=== PATIENT | female | born 1945 | race African-American/Black ===

== ENCOUNTER 2017-08-15 09:33 | Inpatient (IN) | payer MEDICARE ==
[~2017-08-15 09:33] MED LIST: EPHEDrine SULFATE 50 MG/5 ML SYG
[2017-08-15] MEDS ORDERED: ROCURONIUM 50 MG INJ (10:20)
[2017-08-15] MEDS ORDERED: PROPOFOL 20 ML (10:20)
[2017-08-15] MEDS ORDERED: MIDAZOLAM 1 MG/ML 2 ML INJ (10:21)
[2017-08-15] MEDS ORDERED: PHENYLephrine 10 MG INJ (11:11)
[2017-08-15] MEDS ORDERED: PHENYLephrine (100 MCG/ML) 5ML SYG (11:11)
[2017-08-15] MEDS ORDERED: LIDOCAINE 1%/EPI 30 ML INJ (11:13)
[2017-08-15] MEDS ORDERED: ONDANSETRON 4 MG INJ (11:15)
[2017-08-15] MEDS ORDERED: DEXAMETHASONE 4 MG/ML 1 ML INJ (11:15)
[2017-08-15] MEDS ORDERED: METOCLOPRAMIDE 10 MG INJ (11:15)
[2017-08-15] MEDS ORDERED: SUGAMMADEX SODIUM 200 MG/2 ML VIAL IV (12:24)
[2017-08-15] MEDS ORDERED: ACETAMINOPHEN 1000MG/100ML IV 100 ML (12:25)
[2017-08-15] MEDS ORDERED: OXYCODONE/ACETAMINOPHEN (5/325) TAB PO ×2 (12:30)
[2017-08-15] MEDS ORDERED: METOCLOPRAMIDE 10 MG INJ IV (12:30)
[2017-08-15] MEDS ORDERED: ALBUMIN HUMAN 5% 250 ML IV (12:30)
[2017-08-15] MEDS ORDERED: FENTAnyl 50 MCG/ML VIAL IV ×3 (12:30)
[2017-08-15] MEDS ORDERED: LABETALOL HCL 20MG INJ IV (12:30)
[2017-08-15] MEDS ORDERED: EPHEDrine SULFATE 50 MG/5 ML SYG IV (12:30)
[2017-08-15] MEDS ORDERED: hydrALAzine 20 MG INJ IV (12:30)
[2017-08-15] MEDS ORDERED: MEPERIDINE 25 MG INJ IV (12:30)
[2017-08-15] MEDS ORDERED: HYDROmorphONE (0.2 MG/ML) 10ML SYG IV ×3 (12:30)
[2017-08-15] MEDS: LIDOCAINE 1%/EPI 30 ML INJ (12:39)
[2017-08-15] MEDS ORDERED: hydrOXYzine HCL 25 MG TAB PO (13:00)
[2017-08-15] MEDS ORDERED: ONDANSETRON 4 MG INJ IV (13:00)
[2017-08-15] MEDS ORDERED: HYDROmorphONE 0.5 MG/0.5 ML SYG IV (13:00)
[2017-08-15] MEDS: DIPHENHYDRAMINE 50 MG INJ IV (13:24)
[2017-08-15] MEDS: ONDANSETRON 4 MG INJ IV (13:24)
[2017-08-15] MEDS: LACTATED RINGER'S 1,000 ML IV (15:11)
[2017-08-15] MEDS: CLINDAMYCIN 600 MG/D5W (PMX) 50 ML IVPB (17:32)
[2017-08-15 19:16] LABS: CALCIUM 10.2 mg/dl (8.4-10.2)
[2017-08-15] MEDS: ALLOPURINOL 100 MG TAB PO (20:41)
[2017-08-15] MEDS: ATORVASTATIN 80 MG TAB PO (20:41)
[2017-08-15] MEDS: AMLODIPINE 10 MG TAB PO (20:42)
[2017-08-15] MEDS: LOSARTAN 50 MG TAB PO (20:42)
[2017-08-15] MEDS: METOPROLOL (XL) 50 MG TAB PO (20:43)
[2017-08-15] MEDS: LUBIPROSTONE 24 MCG CAP PO (20:56)
[2017-08-15] MEDS: MONTELUKAST 10 MG TAB PO (20:56)
[2017-08-16] MEDS: CLINDAMYCIN 600 MG/D5W (PMX) 50 ML IVPB ×3 (00:16→14:20)
[2017-08-16] MEDS: LACTATED RINGER'S 1,000 ML IV ×3 (00:30→20:30)
[2017-08-16 01:19] LABS: CALCIUM 10.1 mg/dl (8.4-10.2)
[2017-08-16] MEDS: HYDROCODONE/APAP (5/325) TAB PO ×3 (05:40→20:43)
[2017-08-16 06:13] LABS: CALCIUM 10.6 mg/dl (8.4-10.2)
[2017-08-16 06:40] LABS: ANION GAP 14 (8-16); BLOOD UREA NITROGEN 23 mg/dl (7-20); CALCIUM 10.3 mg/dl (8.4-10.2); CARBON DIOXIDE 28 mmol/L (21-31); CHLORIDE 104 mmol/L (97-110); CREATININE 1.37 mg/dl (0.44-1.00); GLUCOSE 135 mg/dl (70-220); POTASSIUM 3.2 mmol/L (3.5-5.1); SODIUM 143 mmol/L (135-144)
[2017-08-16] MEDS: METHIMAZOLE 5 MG TAB PO (09:00)
[2017-08-16] MEDS: LUBIPROSTONE 24 MCG CAP PO (09:00)
[2017-08-16] MEDS: FLUTICASONE 0.05% 16 GM NAS SPRAY NASAL (10:08)
[2017-08-16 12:39] LABS: CALCIUM 10.3 mg/dl (8.4-10.2)
[2017-08-16] MEDS: GUAIFENESIN LA 600 MG TABSR PO (18:31)
[2017-08-16] MEDS: LOSARTAN 50 MG TAB PO (20:33)
[2017-08-16] MEDS: METOPROLOL (XL) 50 MG TAB PO (20:33)
[2017-08-16] MEDS: AMLODIPINE 10 MG TAB PO (20:33)
[2017-08-16] MEDS: LEVOTHYROXINE 100 MCG TAB PO (20:33)
[2017-08-16] MEDS: ATORVASTATIN 80 MG TAB PO (20:34)
[2017-08-16] MEDS: ALLOPURINOL 100 MG TAB PO (20:34)
[2017-08-16] MEDS: MONTELUKAST 10 MG TAB PO (21:00)
[2017-08-16] MEDS: LUBIPROSTONE 8 MCG CAPSULE PO (21:47)
[2017-08-17] MEDS: LACTATED RINGER'S 1,000 ML IV (06:30)
[2017-08-17] MEDS: LUBIPROSTONE 8 MCG CAPSULE PO (08:52)
[2017-08-17] MEDS: GUAIFENESIN LA 600 MG TABSR PO (08:52)
[2017-08-17] MEDS: METHIMAZOLE 5 MG TAB PO (09:00)
== END 2017-08-17 11:25 | disposition home or self-care (01) | DRG 627 ==
LOC: REC 09:33 → MS1 14:28
PROVIDERS: Internal Medicine
PROC: 0GTK0ZZ Resection of Thyroid Gland, Open Approach (ICD-10-PCS; principal; 2017-08-15 10:51)
DX: D35.1 Benign neoplasm of parathyroid gland (principal); E04.9 Nontoxic goiter, unspecified; E21.3 Hyperparathyroidism, unspecified
CPT/HCPCS: 80048; 82310; 88307; 88331

== ENCOUNTER 2017-08-27 19:17 | Emergency (ER) | payer MEDICARE ==
[2017-08-27 23:12] LABS: ADD MAN DIFF? NO
[2017-08-27 23:13] LABS: BASOPHILS % 0.2 % (0.0-2.0); EOSINOPHILS # 0.1 10^3/ul (0.0-0.5); HEMATOCRIT 44.4 % (37.0-47.0); HEMOGLOBIN 15.3 g/dl (12.0-16.0); LYMPHOCYTES # 4.5 10^3/ul (0.8-2.9); LYMPHOCYTES % 35.2 % (15.0-51.0); MEAN CORPUSCULAR HEMOGLOBIN 28.3 pg (29.0-33.0); MEAN CORPUSCULAR HGB CONC 34.5 g/dl (32.0-37.0); MEAN CORPUSCULAR VOLUME 82.1 fl (82.0-101.0); MEAN PLATELET VOLUME 10.5 fl (7.4-10.4); MONOCYTE # 0.7 10^3/ul (0.3-0.9); MONOCYTES % 5.7 % (0.0-11.0); NEUTROPHIL # 7.2 10^3/ul (1.6-7.5); NEUTROPHILS % 56.6 % (39.0-77.0); PLATELET COUNT 216 10^3/UL (140-415); RED BLOOD COUNT 5.41 10^6/ul (4.20-5.40); RED CELL DISTRIBUTION WIDTH 12.9 % (11.5-14.5)
[2017-08-27 23:13] LABS: WHITE BLOOD COUNT 12.7 10^3/ul (4.8-10.8)
[2017-08-27] MEDS: DEXAMETHASONE 10 MG/ML 1 ML INJ IV (23:16)
[2017-08-27 23:33] LABS: INR 1.01; PROTIME 13.4 Sec (11.9-14.9)
[2017-08-27 23:34] LABS: ALANINE AMINOTRANSFERASE 112 IU/L (13-69); ALBUMIN 4.2 g/dl (3.3-4.9); ALBUMIN/GLOBULIN RATIO 1.31; ALKALINE PHOSPHATASE 133 IU/L (42-121); ANION GAP 14 (8-16); ASPARTATE AMINO TRANSFERASE 70 IU/L (15-46); BILIRUBIN,INDIRECT 0.6 mg/dl (0-1.1); BILIRUBIN,TOTAL 0.6 mg/dl (0.2-1.3); BLOOD UREA NITROGEN 24 mg/dl (7-20); CALCIUM 7.4 mg/dl (8.4-10.2); CARBON DIOXIDE 31 mmol/L (21-31); CHLORIDE 97 mmol/L (97-110); CREATININE 1.52 mg/dl (0.44-1.00); GLUCOSE 123 mg/dl (70-220); PARTIAL THROMBOPLASTIN TIME 26.1 Sec (25.0-35.0); SODIUM 139 mmol/L (135-144); TOTAL PROTEIN 7.4 g/dl (6.1-8.1)
[2017-08-27 23:42] LABS: POTASSIUM 2.9 mmol/L (3.5-5.1)
[2017-08-27 23:45] LABS: B-TYPE NATRIURETIC PEPTIDE 38 PG/ML (0-125); TROPONIN-I 0.015 ng/ml (0.00-0.12)
[2017-08-28] MEDS: SOD CHLORIDE 0.9% 100 ML (00:22)
[2017-08-28] MEDS: IOHEXOL 300MG/ML 150 ML BTL (00:22)
[2017-08-28] MEDS: POTASSIUM CHLORIDE (SR) 20 MEQ TAB PO (01:02)
== END 2017-08-28 02:00 | disposition home or self-care (01) ==
LOC: E/R 08-28 02:00
DX: G89.18 Other acute postprocedural pain (principal); R06.02 Shortness of breath
CPT/HCPCS: 36415; 70491; 71045; 80053; 83880; 84484; 85025; 85610; 85730; 93005; 96374; 99285-25

== ENCOUNTER 2017-11-24 19:06 | Inpatient (IN) | payer MEDICARE, OTHER ==
[2017-11-24 19:53] LABS: ADD MAN DIFF? NO
[2017-11-24 19:56] LABS: WHITE BLOOD COUNT 8.4 10^3/ul (4.8-10.8)
[2017-11-24 19:56] LABS: BASOPHILS % 0.5 % (0.0-2.0); EOSINOPHILS % 0.2 % (0.0-7.0); HEMATOCRIT 39.9 % (37.0-47.0); HEMOGLOBIN 13.4 g/dl (12.0-16.0); LYMPHOCYTES # 2.1 10^3/ul (0.8-2.9); MEAN CORPUSCULAR HEMOGLOBIN 27.2 pg (29.0-33.0); MEAN CORPUSCULAR HGB CONC 33.6 g/dl (32.0-37.0); MEAN CORPUSCULAR VOLUME 80.9 fl (82.0-101.0); MEAN PLATELET VOLUME 10.8 fl (7.4-10.4); MONOCYTE # 0.4 10^3/ul (0.3-0.9); MONOCYTES % 4.3 % (0.0-11.0); NEUTROPHIL # 5.8 10^3/ul (1.6-7.5); NEUTROPHILS % 69.8 % (39.0-77.0); PLATELET COUNT 248 10^3/UL (140-415); RED BLOOD COUNT 4.93 10^6/ul (4.20-5.40); RED CELL DISTRIBUTION WIDTH 13.2 % (11.5-14.5)
[2017-11-24] MEDS: HYDROmorphONE 1 MG/5 ML IV SYRINGE IV (19:57)
[2017-11-24] MEDS: ONDANSETRON 4 MG INJ IV (19:57)
[2017-11-24] MEDS: SOD CHLORIDE 0.9% 500 ML IV (19:57)
[2017-11-24 20:14] LABS: ALANINE AMINOTRANSFERASE 19 IU/L (13-69); ALBUMIN 4.5 g/dl (3.3-4.9); ALBUMIN/GLOBULIN RATIO 1.09; ALKALINE PHOSPHATASE 112 IU/L (42-121); ANION GAP 20 (8-16); ASPARTATE AMINO TRANSFERASE 34 IU/L (15-46); BILIRUBIN,INDIRECT 0.4 mg/dl (0-1.1); BILIRUBIN,TOTAL 0.4 mg/dl (0.2-1.3); BLOOD UREA NITROGEN 18 mg/dl (7-20); CALCIUM 9.2 mg/dl (8.4-10.2); CARBON DIOXIDE 25 mmol/L (21-31); CHLORIDE 105 mmol/L (97-110); GLUCOSE 150 mg/dl (70-220); LIPASE 97 U/L (23-300); SODIUM 147 mmol/L (135-144); TOTAL PROTEIN 8.6 g/dl (6.1-8.1)
[2017-11-24 20:17] LABS: POTASSIUM 2.7 mmol/L (3.5-5.1)
[2017-11-24] MEDS: POTASSIUM CHLORIDE 100 ML IVPB ×2 (22:11→22:49)
[2017-11-24] MEDS: MAGNESIUM SULFATE 2 GM/50 ML 50 ML IVPB (22:13)
[2017-11-24] MEDS: ACETAMINOPHEN 325 MG TAB PO (22:51)
[2017-11-25] MEDS: POTASSIUM CHLORIDE 100 ML IVPB ×3 (00:30→13:10)
[2017-11-25 05:51] LABS: ADD MAN DIFF? NO
[2017-11-25 06:04] LABS: BASOPHILS % 0.6 % (0.0-2.0); EOSINOPHILS # 0.1 10^3/ul (0.0-0.5); EOSINOPHILS % 1.3 % (0.0-7.0); HEMATOCRIT 35.8 % (37.0-47.0); HEMOGLOBIN 11.9 g/dl (12.0-16.0); LYMPHOCYTES # 2.8 10^3/ul (0.8-2.9); MEAN CORPUSCULAR HEMOGLOBIN 27.2 pg (29.0-33.0); MEAN CORPUSCULAR HGB CONC 33.2 g/dl (32.0-37.0); MEAN CORPUSCULAR VOLUME 81.7 fl (82.0-101.0); MEAN PLATELET VOLUME 10.5 fl (7.4-10.4); MONOCYTE # 0.5 10^3/ul (0.3-0.9); MONOCYTES % 6.7 % (0.0-11.0); NEUTROPHIL # 3.3 10^3/ul (1.6-7.5); NEUTROPHILS % 49.1 % (39.0-77.0); PLATELET COUNT 204 10^3/UL (140-415); RED BLOOD COUNT 4.38 10^6/ul (4.20-5.40); RED CELL DISTRIBUTION WIDTH 13.2 % (11.5-14.5)
[2017-11-25 06:04] LABS: WHITE BLOOD COUNT 6.7 10^3/ul (4.8-10.8)
[2017-11-25 06:24] LABS: ALANINE AMINOTRANSFERASE 19 IU/L (13-69); ALBUMIN 3.7 g/dl (3.3-4.9); ALBUMIN/GLOBULIN RATIO 1.02; ALKALINE PHOSPHATASE 88 IU/L (42-121); ANION GAP 16 (8-16); ASPARTATE AMINO TRANSFERASE 25 IU/L (15-46); BILIRUBIN,INDIRECT 0.5 mg/dl (0-1.1); BILIRUBIN,TOTAL 0.5 mg/dl (0.2-1.3); BLOOD UREA NITROGEN 20 mg/dl (7-20); CALCIUM 8.5 mg/dl (8.4-10.2); CARBON DIOXIDE 28 mmol/L (21-31); CHLORIDE 106 mmol/L (97-110); CREATININE 1.11 mg/dl (0.44-1.00); GLUCOSE 99 mg/dl (70-220); SODIUM 147 mmol/L (135-144); TOTAL PROTEIN 7.3 g/dl (6.1-8.1)
[2017-11-25 06:29] LABS: POTASSIUM 2.9 mmol/L (3.5-5.1)
[2017-11-25] MEDS: ONDANSETRON 4 MG INJ IV (07:39)
[2017-11-25] MEDS ORDERED: morphine 4 MG/ML VIAL IV (08:05)
[2017-11-25] MEDS: HYDROmorphONE 0.5 MG/0.5 ML SYG IV ×2 (08:58)
[2017-11-25 10:32] LABS: POTASSIUM 3.1 mmol/L (3.5-5.1)
[2017-11-25] MEDS ORDERED: ONDANSETRON 4 MG INJ IV (18:00)
[2017-11-25] MEDS ORDERED: HYDROmorphONE 1 MG/5 ML IV SYRINGE IV (18:00)
[2017-11-25] MEDS: PANTOPRAZOLE 40 MG INJ IV (18:26)
[2017-11-25] MEDS: DIATR MEGLU/DIATRIZOATE SODIUM 120 ML BTL (20:00)
[2017-11-25] MEDS: METOCLOPRAMIDE 10 MG INJ IV (20:45)
[2017-11-25] MEDS: AMLODIPINE 10 MG TAB PO (20:53)
[2017-11-25] MEDS: D5W-0.45 NACL + KCL 40 MEQ 1,000 ML IV (22:04)
[2017-11-25] MEDS: METOPROLOL 50 MG TAB PO (23:00)
[2017-11-26] MEDS: D5W-0.45 NACL + KCL 40 MEQ 1,000 ML IV ×2 (04:00→09:05)
[2017-11-26] MEDS: METOPROLOL 50 MG TAB PO ×2 (04:03→09:12)
[2017-11-26] MEDS: HYDROmorphONE 0.5 MG/0.5 ML SYG IV (04:05)
[2017-11-26] MEDS: DILTIAZEM 25 MG INJ IV (05:27)
[2017-11-26] MEDS: PANTOPRAZOLE 40 MG INJ IV ×2 (05:27→17:19)
[2017-11-26] MEDS: LEVOTHYROXINE 175 MCG TAB PO (05:28)
[2017-11-26] MEDS: DILTIAZEM-D5W 125MG/125ML DRIP 125 ML IV (05:31)
[2017-11-26] MEDS ORDERED: LEVOTHYROXINE 100 MCG TAB PO (07:00)
[2017-11-26 08:45] LABS: ADD MAN DIFF? NO
[2017-11-26 08:50] LABS: WHITE BLOOD COUNT 6.3 10^3/ul (4.8-10.8)
[2017-11-26 08:50] LABS: BASOPHILS % 0.6 % (0.0-2.0); EOSINOPHILS # 0.2 10^3/ul (0.0-0.5); EOSINOPHILS % 2.4 % (0.0-7.0); HEMATOCRIT 35.8 % (37.0-47.0); HEMOGLOBIN 11.7 g/dl (12.0-16.0); LYMPHOCYTES # 3.2 10^3/ul (0.8-2.9); MEAN CORPUSCULAR HEMOGLOBIN 27.3 pg (29.0-33.0); MEAN CORPUSCULAR HGB CONC 32.7 g/dl (32.0-37.0); MEAN CORPUSCULAR VOLUME 83.4 fl (82.0-101.0); MEAN PLATELET VOLUME 10.7 fl (7.4-10.4); MONOCYTE # 0.4 10^3/ul (0.3-0.9); NEUTROPHIL # 2.4 10^3/ul (1.6-7.5); NEUTROPHILS % 38.8 % (39.0-77.0); PLATELET COUNT 210 10^3/UL (140-415); RED BLOOD COUNT 4.29 10^6/ul (4.20-5.40); RED CELL DISTRIBUTION WIDTH 13.9 % (11.5-14.5)
[2017-11-26] MEDS: CALCITRIOL 0.25 MCG CAP PO (09:11)
[2017-11-26] MEDS: LIOTHYRONINE 5 MCG TAB PO (09:11)
[2017-11-26] MEDS: METOCLOPRAMIDE 10 MG INJ IV ×3 (09:12→20:37)
[2017-11-26 09:21] LABS: ALANINE AMINOTRANSFERASE 24 IU/L (13-69); ALBUMIN 3.7 g/dl (3.3-4.9); ALBUMIN/GLOBULIN RATIO 1.15; ALKALINE PHOSPHATASE 77 IU/L (42-121); ANION GAP 13 (8-16); ASPARTATE AMINO TRANSFERASE 30 IU/L (15-46); BILIRUBIN,INDIRECT 0.7 mg/dl (0-1.1); BILIRUBIN,TOTAL 0.7 mg/dl (0.2-1.3); BLOOD UREA NITROGEN 18 mg/dl (7-20); CALCIUM 8.1 mg/dl (8.4-10.2); CARBON DIOXIDE 27 mmol/L (21-31); CHLORIDE 110 mmol/L (97-110); CREATININE 1.26 mg/dl (0.44-1.00); GLUCOSE 125 mg/dl (70-220); MAGNESIUM 1.8 mg/dl (1.7-2.5); POTASSIUM 3.6 mmol/L (3.5-5.1); SODIUM 146 mmol/L (135-144); TOTAL PROTEIN 6.9 g/dl (6.1-8.1)
[2017-11-26 09:32] LABS: T4 (THYROXINE) 14.6 ug/dl (5.5-11.0)
[2017-11-26 09:33] LABS: FREE T4 (FREE THYROXINE) 2.48 ng/dl (0.78-2.44)
[2017-11-26 09:46] LABS: THYROID STIMULATING HORMONE 0.019 MIU/L (0.465-4.680)
[2017-11-26 09:46] LABS: TRIIODOTHYRONINE 0.87 ng/ml (0.97-1.69)
[2017-11-26] MEDS: AMLODIPINE 10 MG TAB PO (20:37)
[2017-11-26] MEDS: ENALAPRILAT 1.25 MG INJ IV (21:41)
[2017-11-27] MEDS: D5W-0.45 NACL + KCL 40 MEQ 1,000 ML IV ×2 (02:23→13:27)
[2017-11-27] MEDS: LEVOTHYROXINE 150 MCG TAB PO (05:38)
[2017-11-27] MEDS: PANTOPRAZOLE 40 MG INJ IV ×2 (05:38→17:38)
[2017-11-27] MEDS: FLUTICASONE 0.05% 16 GM NAS SPRAY NASAL ×2 (08:56→21:15)
[2017-11-27] MEDS: METOCLOPRAMIDE 10 MG INJ IV ×3 (08:56→21:16)
[2017-11-27] MEDS: CALCITRIOL 0.25 MCG CAP PO (08:57)
[2017-11-27] MEDS: DILTIAZEM (CD) 120 MG CAP PO (08:58)
[2017-11-27 15:04] LABS: ALBUMIN 3.8 g/dl (3.3-4.9); ANION GAP 15 (8-16); BLOOD UREA NITROGEN 10 mg/dl (7-20); CALCIUM 7.8 mg/dl (8.4-10.2); CARBON DIOXIDE 24 mmol/L (21-31); CHLORIDE 109 mmol/L (97-110); CREATININE 0.92 mg/dl (0.44-1.00); GLUCOSE 141 mg/dl (70-220); PHOSPHORUS 2.8 mg/dl (2.5-4.9); POTASSIUM 3.4 mmol/L (3.5-5.1); SODIUM 145 mmol/L (135-144)
[2017-11-27 15:20] LABS: POTASSIUM,URINE RANDOM 16.8 mmol/L (25-125)
[2017-11-27] MEDS: SPIRONOLACTONE 25 MG TAB PO (18:26)
[2017-11-27] MEDS: AMLODIPINE 10 MG TAB PO (21:16)
[2017-11-28] MEDS: D5W-0.45 NACL + KCL 40 MEQ 1,000 ML IV ×4 (01:21→17:23)
[2017-11-28] MEDS: PANTOPRAZOLE 40 MG INJ IV ×2 (05:46→17:23)
[2017-11-28] MEDS: LEVOTHYROXINE 150 MCG TAB PO (05:46)
[2017-11-28] MEDS: SPIRONOLACTONE 25 MG TAB PO ×2 (05:46→17:23)
[2017-11-28 07:38] LABS: ALDOSTERONE 30 ng/dL
[2017-11-28] MEDS: CALCITRIOL 0.25 MCG CAP PO (08:25)
[2017-11-28] MEDS: DILTIAZEM (CD) 120 MG CAP PO (08:25)
[2017-11-28] MEDS: FLUTICASONE 0.05% 16 GM NAS SPRAY NASAL ×2 (08:43→20:28)
[2017-11-28] MEDS: METOCLOPRAMIDE 10 MG INJ IV ×3 (08:44→20:26)
[2017-11-28 10:09] LABS: ALBUMIN 3.9 g/dl (3.3-4.9); ANION GAP 16 (8-16); BLOOD UREA NITROGEN 7 mg/dl (7-20); CALCIUM 7.7 mg/dl (8.4-10.2); CARBON DIOXIDE 24 mmol/L (21-31); CHLORIDE 110 mmol/L (97-110); CREATININE 0.89 mg/dl (0.44-1.00); GLUCOSE 105 mg/dl (70-220); PHOSPHORUS 2.8 mg/dl (2.5-4.9); POTASSIUM 3.5 mmol/L (3.5-5.1); SODIUM 146 mmol/L (135-144)
[2017-11-28 10:30] LABS: MAGNESIUM 1.3 mg/dl (1.7-2.5)
[2017-11-28] MEDS ORDERED: MIDAZOLAM 1 MG/ML 2 ML INJ (14:00)
[2017-11-28] MEDS ORDERED: PROPOFOL 20 ML (14:12)
[2017-11-28] MEDS ORDERED: ESMOLOL 10 ML (14:12)
[2017-11-28] MEDS ORDERED: MEPERIDINE 25 MG INJ IV (15:00)
[2017-11-28] MEDS ORDERED: ONDANSETRON 4 MG INJ IV (15:00)
[2017-11-28] MEDS ORDERED: OXYCODONE/ACETAMINOPHEN (5/325) 1 TAB PO (15:00)
[2017-11-28] MEDS ORDERED: LABETALOL 5 MG IV (15:00)
[2017-11-28] MEDS: AMLODIPINE 10 MG TAB PO (20:26)
[2017-11-28] MEDS: MAGNESIUM SULFATE 4 GM/100 ML 100 ML IVPB (20:26)
[2017-11-29] MEDS: PANTOPRAZOLE (EC) 40 MG TAB PO (05:38)
[2017-11-29] MEDS: SPIRONOLACTONE 25 MG TAB PO ×2 (05:39→17:09)
[2017-11-29] MEDS: LEVOTHYROXINE 150 MCG TAB PO (05:42)
[2017-11-29] MEDS: FLUTICASONE 0.05% 16 GM NAS SPRAY NASAL (08:20)
[2017-11-29] MEDS: CALCITRIOL 0.25 MCG CAP PO (08:21)
[2017-11-29] MEDS: DILTIAZEM (CD) 120 MG CAP PO (08:21)
[2017-11-29 09:29] LABS: ADD MAN DIFF? NO
[2017-11-29 09:33] LABS: BASOPHIL # 0.1 10^3/ul (0.0-0.1); BASOPHILS % 0.6 % (0.0-2.0); EOSINOPHILS # 0.1 10^3/ul (0.0-0.5); EOSINOPHILS % 1.2 % (0.0-7.0); HEMATOCRIT 37.6 % (37.0-47.0); HEMOGLOBIN 12.9 g/dl (12.0-16.0); LYMPHOCYTES # 2.9 10^3/ul (0.8-2.9); LYMPHOCYTES % 36.7 % (15.0-51.0); MEAN CORPUSCULAR HEMOGLOBIN 27.6 pg (29.0-33.0); MEAN CORPUSCULAR HGB CONC 34.3 g/dl (32.0-37.0); MEAN CORPUSCULAR VOLUME 80.5 fl (82.0-101.0); MEAN PLATELET VOLUME 10.4 fl (7.4-10.4); MONOCYTE # 0.4 10^3/ul (0.3-0.9); MONOCYTES % 4.9 % (0.0-11.0); NEUTROPHIL # 4.4 10^3/ul (1.6-7.5); NEUTROPHILS % 56.1 % (39.0-77.0); PLATELET COUNT 245 10^3/UL (140-415); RED BLOOD COUNT 4.67 10^6/ul (4.20-5.40); RED CELL DISTRIBUTION WIDTH 13.4 % (11.5-14.5)
[2017-11-29 09:33] LABS: WHITE BLOOD COUNT 7.8 10^3/ul (4.8-10.8)
[2017-11-29 09:54] LABS: ALANINE AMINOTRANSFERASE 19 IU/L (13-69); ALBUMIN 4.3 g/dl (3.3-4.9); ALKALINE PHOSPHATASE 107 IU/L (42-121); ANION GAP 17 (8-16); ASPARTATE AMINO TRANSFERASE 32 IU/L (15-46); BLOOD UREA NITROGEN 6 mg/dl (7-20); CALCIUM 7.8 mg/dl (8.4-10.2); CARBON DIOXIDE 23 mmol/L (21-31); CHLORIDE 107 mmol/L (97-110); CREATININE 0.85 mg/dl (0.44-1.00); GLUCOSE 97 mg/dl (70-220); POTASSIUM 3.2 mmol/L (3.5-5.1); SODIUM 144 mmol/L (135-144); TOTAL PROTEIN 8.2 g/dl (6.1-8.1)
[2017-11-29 10:20] LABS: THYROID STIMULATING HORMONE 0.063 MIU/L (0.465-4.680)
[2017-11-29] MEDS: POTASSIUM CHLORIDE (SR) 20 MEQ TAB PO (15:08)
== END 2017-11-29 17:38 | disposition home health service (06) | DRG 389 ==
LOC: E/R 19:06 → MS4 22:30
PROC: 0DB98ZX Excision of Duodenum, Via Natural or Artificial Opening Endoscopic, Diagnostic (ICD-10-PCS; principal; 2017-11-28 13:30)
PROC: 0DB68ZX Excision of Stomach, Via Natural or Artificial Opening Endoscopic, Diagnostic (ICD-10-PCS; 2017-11-28 13:30)
DX: K56.600 Partial intestinal obstruction, unspecified as to cause (principal); N17.9 Acute kidney failure, unspecified; E87.1 Hypo-osmolality and hyponatremia; I71.4 Abdominal aortic aneurysm, without rupture; I48.0 Paroxysmal atrial fibrillation; E66.01 Morbid (severe) obesity due to excess calories; Z68.38 Body mass index [BMI] 38.0-38.9, adult; E87.6 Hypokalemia; E89.2 Postprocedural hypoparathyroidism; K29.70 Gastritis, unspecified, without bleeding; E83.42 Hypomagnesemia; E89.0 Postprocedural hypothyroidism; I10 Essential (primary) hypertension; K44.9 Diaphragmatic hernia without obstruction or gangrene
CPT/HCPCS: 36415; 74176; 74250; 80053; 80069; 82088; 82962; 83690; 83735; 84132; 84133; 84244; 84436; 84439; 84443; 84480; 85025; 85651; 88305; 88312; 93005; 93306; 96374; 96375; 96376; 99285-25

== ENCOUNTER 2017-12-06 20:30 | Emergency (ER) | payer MEDICARE, OTHER ==
[2017-12-06 22:16] LABS: ANION GAP 21 (8-16); BLOOD UREA NITROGEN 15 mg/dl (7-20); CALCIUM 9.5 mg/dl (8.4-10.2); CARBON DIOXIDE 24 mmol/L (21-31); CHLORIDE 104 mmol/L (97-110); CREATININE 1.18 mg/dl (0.44-1.00); GLUCOSE 98 mg/dl (70-220); POTASSIUM 3.6 mmol/L (3.5-5.1); SODIUM 145 mmol/L (135-144)
== END 2017-12-06 22:45 | disposition home or self-care (01) ==
LOC: FTE 20:30
DX: I10 Essential (primary) hypertension (principal)
CPT/HCPCS: 80048; 99283

== ENCOUNTER 2017-12-24 01:11 | Emergency (ER) | payer MEDICARE, OTHER ==
[2017-12-24 02:07] LABS: ADD MAN DIFF? NO
[2017-12-24 02:10] LABS: BASOPHILS % 0.6 % (0.0-2.0); EOSINOPHILS # 0.1 10^3/ul (0.0-0.5); EOSINOPHILS % 1.8 % (0.0-7.0); HEMATOCRIT 40.2 % (37.0-47.0); HEMOGLOBIN 13.5 g/dl (12.0-16.0); LYMPHOCYTES # 3.9 10^3/ul (0.8-2.9); LYMPHOCYTES % 58.6 % (15.0-51.0); MEAN CORPUSCULAR HEMOGLOBIN 27.2 pg (29.0-33.0); MEAN CORPUSCULAR HGB CONC 33.6 g/dl (32.0-37.0); MEAN PLATELET VOLUME 10.9 fl (7.4-10.4); MONOCYTE # 0.4 10^3/ul (0.3-0.9); MONOCYTES % 6.3 % (0.0-11.0); NEUTROPHIL # 2.2 10^3/ul (1.6-7.5); NEUTROPHILS % 32.5 % (39.0-77.0); PLATELET COUNT 226 10^3/UL (140-415); RED BLOOD COUNT 4.96 10^6/ul (4.20-5.40); RED CELL DISTRIBUTION WIDTH 13.3 % (11.5-14.5)
[2017-12-24 02:10] LABS: WHITE BLOOD COUNT 6.7 10^3/ul (4.8-10.8)
[2017-12-24 02:36] LABS: ALANINE AMINOTRANSFERASE 23 IU/L (13-69); ALBUMIN 4.3 g/dl (3.3-4.9); ALBUMIN/GLOBULIN RATIO 1.07; ALKALINE PHOSPHATASE 97 IU/L (42-121); ANION GAP 13 (8-16); ASPARTATE AMINO TRANSFERASE 27 IU/L (15-46); BILIRUBIN,INDIRECT 0.3 mg/dl (0-1.1); BILIRUBIN,TOTAL 0.3 mg/dl (0.2-1.3); BLOOD UREA NITROGEN 15 mg/dl (7-20); CALCIUM 9.7 mg/dl (8.4-10.2); CARBON DIOXIDE 25 mmol/L (21-31); CHLORIDE 107 mmol/L (97-110); CREATININE 1.21 mg/dl (0.44-1.00); GLUCOSE 104 mg/dl (70-220); POTASSIUM 3.7 mmol/L (3.5-5.1); SODIUM 141 mmol/L (135-144); TOTAL PROTEIN 8.3 g/dl (6.1-8.1)
[2017-12-24 02:47] LABS: B-TYPE NATRIURETIC PEPTIDE 33 PG/ML (0-125)
[2017-12-24 02:51] LABS: TROPONIN-I < 0.012 ng/ml (0.000-0.120)
[2017-12-24] MEDS: DILTIAZEM 50 MG INJ IV (03:07)
[2017-12-24 04:54] LABS: FREE THYROXINE INDEX (Calc) 6.98 ug/ml (0.65-3.89); T3 UPTAKE 37.3 % (23.5-40.5); T4 (THYROXINE) 18.7 ug/dl (5.5-11.0)
== END 2017-12-24 05:23 | disposition home or self-care (01) ==
LOC: E/R 05:23
DX: I10 Essential (primary) hypertension (principal); E05.90 Thyrotoxicosis, unspecified without thyrotoxic crisis or storm
CPT/HCPCS: 36415; 71045; 80053; 83880; 84436; 84479; 84484; 85025; 93005; 96374; 99285-25

== ENCOUNTER 2017-12-26 18:28 | Emergency (ER) | payer MEDICARE, OTHER ==
[2017-12-26 20:14] LABS: HEMATOCRIT 39.7 % (37.0-47.0); HEMOGLOBIN 13.1 g/dl (12.0-16.0); MEAN CORPUSCULAR HEMOGLOBIN 26.6 pg (29.0-33.0); MEAN CORPUSCULAR VOLUME 80.7 fl (82.0-101.0); MEAN PLATELET VOLUME 10.2 fl (7.4-10.4); PLATELET COUNT 206 10^3/UL (140-415); RED BLOOD COUNT 4.92 10^6/ul (4.20-5.40); RED CELL DISTRIBUTION WIDTH 13.5 % (11.5-14.5)
[2017-12-26 20:14] LABS: WHITE BLOOD COUNT 5.9 10^3/ul (4.8-10.8)
[2017-12-26 20:16] LABS: ADD MAN DIFF? YES
[2017-12-26] MEDS: DIPHENHYDRAMINE 50 MG INJ IV (20:19)
[2017-12-26] MEDS: METOCLOPRAMIDE 10 MG INJ IV (20:19)
[2017-12-26] MEDS: KETOROLAC 15 MG INJ IV (20:19)
[2017-12-26] MEDS: SOD CHLORIDE 0.9% 500 ML IV (20:20)
[2017-12-26 20:32] LABS: ANION GAP 20 (8-16); BLOOD UREA NITROGEN 16 mg/dl (7-20); CALCIUM 9.8 mg/dl (8.4-10.2); CARBON DIOXIDE 23 mmol/L (21-31); CHLORIDE 102 mmol/L (97-110); CREATININE 1.24 mg/dl (0.44-1.00); GLUCOSE 89 mg/dl (70-220); POTASSIUM 3.8 mmol/L (3.5-5.1); SODIUM 141 mmol/L (135-144)
[2017-12-26 20:45] LABS: TROPONIN-I < 0.010 ng/ml (0.000-0.120)
[2017-12-26 22:23] LABS: FREE T4 (FREE THYROXINE) 1.89 ng/dl (0.78-2.44)
[2017-12-26 22:35] LABS: THYROID STIMULATING HORMONE < 0.015 MIU/L (0.465-4.680)
== END 2017-12-26 23:05 | disposition home or self-care (01) ==
LOC: E/R 23:05
DX: N18.9 Chronic kidney disease, unspecified (principal); I12.9 Hypertensive chronic kidney disease with stage 1 through stage 4 chronic kidney disease, or unspecified chronic kidney disease; E03.9 Hypothyroidism, unspecified; R40.2142 Coma scale, eyes open, spontaneous, at arrival to emergency department; R40.2252 Coma scale, best verbal response, oriented, at arrival to emergency department; R40.2362 Coma scale, best motor response, obeys commands, at arrival to emergency department
CPT/HCPCS: 36415; 71045; 80048; 84439; 84443; 84484; 85025; 93005; 96374; 96375; 99285-25